=== PATIENT | female | born 1965 | race Caucasian/White ===

== ENCOUNTER 2019-10-18 18:58 | Emergency (ER) | payer BC, OTHER ==
[2019-10-18] MEDS ORDERED: MECLIZINE HCL 25 MG TABLET PO ONE (20:34)
--- NOTE | 2019-10-18 20:34 | ER Document Report ---
ED Medical Screen (RME) - General Chief Complaint: Nausea Stated Complaint: DIZZINESS,NAUSEA Time Seen by Provider: 10/18/19 20:28 Primary Care Provider: BORIS SANCHEZ [Primary Care Provider] - Follow up as needed Notes: HPI: 54-year-old female who is reasonably healthy presenting for sudden onset of vertigo-like symptoms this afternoon after work. Patient went to get up from her chair and had sudden onset of room spinning sensation with significant nausea. No chest pain or shortness of breath today did have chest pain yesterday. Patient states symptoms are slowly resolving currently but when she was driving over here every time she would move or turn her head she would have significant room spinning sensation PHYSICAL EXAMINATION: No nystagmus. Lung sounds are clear to auscultation regular rate and rhythm. Answering all questions appropriately no facial droop. Able to rotate the head to the left and right without recurrent symptoms I have greeted and performed a rapid initial assessment of this patient. A comprehensive ED assessment and evaluation of the patient, analysis of test results and completion of medical decision making process will be conducted by an additional ED providers. - Related Data Allergies/Adverse Reactions: Penicillins Allergy (Verified 10/18/19 20:32) Physical Exam - Vital signs Vitals: Temp Pulse Resp BP Pulse Ox 97.6 F 80 14 148/79 H 98 10/18/19 19:02 10/18/19 19:02 10/18/19 19:02 10/18/19 19:02 10/18/19 19:02 Course - Vital Signs Vital signs: Temp Pulse Resp BP Pulse Ox 97.6 F 80 14 148/79 H 98 10/18/19 19:02 10/18/19 19:02 10/18/19 19:02 10/18/19 19:02 10/18/19 19:02 Doctor's Discharge - Discharge Referrals: BORIS SANCHEZ [Primary Care Provider] - Follow up as needed
--- NOTE | 2019-10-18 21:10 | RADIOLOGY REPORT (SQ) ---
EXAM DESCRIPTION: CT HEAD WITHOUT IV CONTRAST COMPLETED DATE/TME: 10/18/2019 20:32 CLINICAL HISTORY: 54 years, Female, vertigo COMPARISON: None. TECHNIQUE: Noncontrast CT head was acquired. Coronal and sagittal reformations were created. Images stored on PACS. All CT scanners at this facility use dose modulation, iterative reconstruction, and/or weight based dosing when appropriate to reduce radiation dose to as low as reasonably achievable (ALARA). [facility]: Dose Right [facility]: CareDose [facility]: Dose Right [facility]: Teradose 4D [facility]: [employer] LIMITATIONS: None. FINDINGS: Brain parenchyma is normal in attenuation. No acute intracranial hemorrhage, mass effect, or extra-axial fluid is seen. Ventricles, sulcal spaces, and basilar cisterns are normal in size and configuration. Globes and orbits show no acute abnormality. Rounded opacity is noted about the right maxillary antrum, indicating a mucous retention cyst or inflammatory polyp. The nasal septum is mildly deviated towards the right. Remaining paranasal sinuses and mastoid air cells are clear. There are no depressed skull fractures. IMPRESSION: No acute intracranial abnormality. TECHNICAL DOCUMENTATION: Quality ID # 436: Final reports with documentation of one or more dose reduction techniques (e.g., Automated exposure control, adjustment of the mA and/or kV according to patient size, use of iterative reconstruction technique) copyright 2011 [employer]- All Rights Reserved
[2019-10-18 21:34] LABS: ABSOLUTE MONOCYTES (AUTO) 0.4 10^3/uL (0.1-1.4); ABSOLUTE NEUT (AUTO) 14.3 10^3/uL (1.7-8.2); BASOPHILS % (AUTO) 0.3 % (0-2); EOSINOPHILS % (AUTO) 0.2 % (0-6); HEMATOCRIT 40.2 % (36.0-47.0); HEMOGLOBIN 13.6 g/dL (12.0-15.5); LYMPHOCYTES % (AUTO) 6.3 % (13-45); MEAN CORPUSCULAR HEMOGLOBIN 28.1 pg (27.0-33.4); MEAN CORPUSCULAR HGB CONC 33.8 g/dL (32.0-36.0); MEAN CORPUSCULAR VOLUME 83 fl (80-97); MONOCYTES % (AUTO) 2.7 % (3-13); PLATELET COUNT 306 10^3/uL (150-450); RED BLOOD COUNT 4.84 10^6/uL (3.72-5.28); RED CELL DISTRIBUTION WIDTH 13.7 % (11.5-14.0); SEGMENTED NEUTROPHILS % (AUTO) 90.5 % (42-78); TOTAL CELLS COUNTED % (AUTO) 100 %; WHITE BLOOD COUNT 15.8 10^3/uL (4.0-10.5)
[2019-10-18 21:57] LABS: ALBUMIN 4.8 g/dL (3.5-5.0); ALKALINE PHOSPHATASE 61 U/L (38-126); ANION GAP 9 (5-19); ASPARTATE AMINO TRANSFERASE 36 U/L (14-36); BILIRUBIN,TOTAL 0.3 mg/dL (0.2-1.3); BLOOD UREA NITROGEN 16 mg/dL (7-20); CALCIUM 9.7 mg/dL (8.4-10.2); CARBON DIOXIDE 24 mmol/L (22-30); CHLORIDE 103 mmol/L (98-107); GLUCOSE 146 mg/dL (75-110); POTASSIUM 4.2 mmol/L (3.6-5.0); TOTAL PROTEIN 8.4 g/dL (6.3-8.2)
--- NOTE | 2019-10-18 21:57 | RADIOLOGY REPORT (SQ) ---
CLINICAL INDICATION: vertigo. TECHNIQUE: A single portable AP view was obtained of the chest at 2126 hours. COMPARISON: None. FINDINGS: The cardiomediastinal silhouette is normal. The lungs are grossly clear. No evidence of effusion or pneumothorax. Chronic parenchymal lung change.. IMPRESSION: No evidence of active intrathoracic disease.
[2019-10-18] MEDS ORDERED: ONDANSETRON ODT 4 MG TAB (6 TAB/ER DISP) PO PRN (23:20)
--- NOTE | 2019-10-18 23:20 | ER Document Report ---
ED General - General Chief Complaint: Dizziness Stated Complaint: DIZZINESS,NAUSEA Time Seen by Provider: 10/18/19 20:28 Notes: Patient is a 54-year-old female that comes emergency department for chief complaint of sudden onset of dizziness with a sensation of spinning around. This happened this afternoon, she states she felt nauseated. She denies falling. She was treated with 25 mg of meclizine in triage and states that her symptoms had already improved upon arrival to the emergency department, now symptoms are completely resolved. She denies headache. She denies chest pain, shortness of breath, she does state that she had a vague sensation of this yesterday but this resolved. She denies fever or recent illness. - Related Data Allergies/Adverse Reactions: Penicillins Allergy (Verified 10/18/19 20:32) Home Medications: progesterone, omperazole, levothyroxine, d3, bupropion, colestipol, estradiol Past Medical History - General Information source: Patient - Social History Smoking Status: Never Smoker Chew tobacco use (# tins/day): No Frequency of alcohol use: None Drug Abuse: None Lives with: Family Family History: Reviewed & Not Pertinent Patient has homicidal ideation: No Endocrine Medical History: Reports: Hx Hypothyroidism Musculoskeletal Medical History: Reports Hx Arthritis Psychiatric Medical History: Reports: Hx Anxiety Review of Systems - Review of Systems Constitutional: See HPI EENT: No symptoms reported Cardiovascular: See HPI Respiratory: No symptoms reported Gastrointestinal: See HPI Genitourinary: No symptoms reported Female Genitourinary: No symptoms reported Musculoskeletal: No symptoms reported Skin: No symptoms reported Hematologic/Lymphatic: No symptoms reported Neurological/Psychological: See HPI Physical Exam - Vital signs Vitals: Temp Pulse Resp BP Pulse Ox 97.6 F 80 14 148/79 H 98 10/18/19 19:02 10/18/19 19:02 10/18/19 19:02 10/18/19 19:02 10/18/19 19:02 - Notes Notes: GENERAL: Alert, interacts well. No acute distress. HEAD: Normocephalic, atraumatic. EYES: Pupils equal, round, and reactive to light. Extraocular movements intact. ENT: Oral mucosa moist, tongue midline. Oropharynx unremarkable. Airway patent. Nares patent, sinuses non-tender, ear canals unremarkable, TM's intact. NECK: Full range of motion. Supple. Trachea midline. No lymphadenopathy. LUNGS: Clear to auscultation bilaterally, no wheezes, rales, or rhonchi. No respiratory distress. Non-tender chest wall. HEART: Regular rate and rhythm. No murmur ABDOMEN: Soft, non-tender. Non-distended. EXTREMITIES: Moves all 4 extremities spontaneously. No edema, normal radial and dorsalis pedis pulses bilaterally. No cyanosis. BACK: no cervical, thoracic, lumbar midline tenderness. No saddle anesthesia, normal distal neurovascular exam. Moves all extremities in full range of motion. NEUROLOGICAL: Alert and oriented x3. Normal speech. Cranial nerves II through XII grossly intact. Strength 5/5 in all extremities. PSYCH: Normal affect, normal mood. SKIN: Warm, dry, normal turgor. No rashes or lesions noted. Course - Re-evaluation Re-evalutation: Patient smiling, talkative, well-appearing on my exam. Patient has no current vertigo symptoms, she states symptoms completely resolved after taking the meclizine. She has no complaints, physical exam is unremarkable. Vital signs unremarkable. I did review work-up including CBC that shows some leukocytosis with elevation of neutrophils but no bandemia. This is very nonspecific given patient's resolution of symptoms, no sick symptoms, no evidence of infection. I suspect this was stress response but I did discuss this with patient. She states she will routinely follow-up in regards to this. Remaining work-up was unremarkable including CT of the head from triage. I discussed expectations, follow-up, and return precautions at length with patient. Patient states appreciation and agreement with plan. - Vital Signs Vital signs: Temp Pulse Resp BP Pulse Ox 97.6 F 92 16 137/82 H 99 10/18/19 20:32 10/18/19 23:38 10/18/19 23:38 10/18/19 23:38 10/18/19 23:38 - Laboratory Result Diagrams: 10/18/19 21:00 10/18/19 21:00 Laboratory results interpreted by me: 10/18/19 10/18/19 21:00 21:00 WBC 15.8 H Lymph % (Auto) 6.3 L [place] % (Auto) 2.7 L Absolute Neuts (auto) 14.3 H Seg Neutrophils % 90.5 H Sodium 136.4 L Glucose 146 H ALT 47 H Total Protein 8.4 H - EKG Interpretation by Me Additional EKG results interpreted by me: EKG shows sinus rhythm at a rate of 82, QTc 449, left axis deviation. No T wave inversions or ST segment changes in consecutive leads. Discharge - Discharge Clinical Impression: Dizziness, Vertigo, Nausea Condition: Stable Disposition: HOME, SELF-CARE Additional Instructions: Your evaluation is most consistent with labyrinthitis as we discussed, inflammation/abnormality of the inner ear causing vertigo. Take the meclizine as prescribed to completion, take Zofran if needed for nausea. Symptoms should simply resolve. The CAT scan of your brain is normal. Follow-up with primary care for additional management. Return if you worsen including developing severe headache, vomiting, fever, numbness or weakness on one side of your body, or any other concerning or worsening symptoms. Prescriptions: Meclizine HCl [Antivert 25 mg Tablet] 25 mg PO TID PRN #21 tablet PRN Reason: Ondansetron [Zofran Odt 4 mg Tablet] 1 - 2 tab PO Q4H PRN #15 tab.rapdis PRN Reason: For Nausea/Vomiting Forms: Return to Work
[2019-10-18 23:51] VITALS: BP 137/82
--- NOTE | 2019-10-19 12:42 | EKG REPORT ---
SEVERITY:- OTHERWISE NORMAL ECG - SINUS RHYTHM LEFT AXIS DEVIATION : Confirmed by: Elizabeth Matias 19-Oct-2019 12:40:50
== END 2019-10-18 23:45 | disposition home or self-care (01) ==
LOC: ER 18:58
DX: R42 Dizziness and giddiness (principal); R11.0 Nausea; E03.9 Hypothyroidism, unspecified; Z88.0 Allergy status to penicillin
CPT/HCPCS: 36415; 70450; 71045; 80053; 84484; 85025; 93005; 93010; 99285